=== PATIENT | female | born 1960 | race Caucasian/White ===

== ENCOUNTER → 2017-10-28 | Outpatient (CLI) | payer BC ==
[~2017-10-28] MED LIST: ADVIL200 MG PO; FLEXERIL10 MG PO; MOBIC15 MG PO; OMEPRAZOLE40 M1 PO; VITAMIN D5000 UNI1 PO; WELLBUTRIN SR150 MG PO
== END | disposition home or self-care (01) ==
LOC: CDC 09:17
DX: Z01.810 Encounter for preprocedural cardiovascular examination (principal); M79.9 Soft tissue disorder, unspecified; R94.31 Abnormal electrocardiogram [ECG] [EKG]
CPT/HCPCS: 93000

== ENCOUNTER 2017-11-03 09:43 | Day surgery (SDC) | payer BC ==
[~2017-11-03] VITALS: Ht 160 cm; Wt 73.5 kg
[2017-11-03 10:21] VITALS: BP 127/79
[2017-11-03 13:07] VITALS: BP 139/68
[2017-11-03 13:21] VITALS: BP 122/58
== END 2017-11-03 13:30 | disposition home or self-care (01) ==
LOC: SDC
PROC: 0JB80ZZ Excision of Abdomen Subcutaneous Tissue and Fascia, Open Approach (ICD-10-PCS; principal; 2017-11-03)
DX: D17.1 Benign lipomatous neoplasm of skin and subcutaneous tissue of trunk (principal); E66.9 Obesity, unspecified; Z68.28 Body mass index [BMI] 28.0-28.9, adult; Z90.49 Acquired absence of other specified parts of digestive tract; E78.5 Hyperlipidemia, unspecified; E55.9 Vitamin D deficiency, unspecified; Z90.710 Acquired absence of both cervix and uterus; Z90.79 Acquired absence of other genital organ(s); Z90.722 Acquired absence of ovaries, bilateral; Z82.49 Family history of ischemic heart disease and other diseases of the circulatory system; Z82.3 Family history of stroke; Z84.1 Family history of disorders of kidney and ureter; Z80.6 Family history of leukemia
CPT/HCPCS: 88304; J0690; J2250; J3010